=== PATIENT | male | born 1975 | race Caucasian/White ===

== ENCOUNTER 2017-11-19 16:05 | Emergency (ER) | payer BC, OTHER ==
[~2017-11-19] VITALS: Ht 175.3 cm; Wt 79.1 kg
[2017-11-19 16:07] VITALS: Ht 175.3 cm; Wt 79.1 kg
[2017-11-19] MEDS ORDERED: MoRPHine SULFATE 10 MG/ML CARP/VIAL IV STA (16:14)
[2017-11-19] MEDS ORDERED: ONDANSETRON INJ 2 MG/ML 2 ML VIAL IV PRN (16:15)
--- NOTE | 2017-11-19 16:43 | DIAGNOSTIC IMAGING REPORT ---
L FOREARM 2 VIEWS ROUTINE CLINICAL HISTORY: Fall/forearm injury trauma. Pain. COMPARISON: None. DISCUSSION: Transverse comminuted fracture midshaft radius. Left elbow dislocation. Moderate soft tissue edema IMPRESSION: 1. Comminuted fracture with moderate displacement mid radial shaft. 2. Left elbow dislocation. The above report was generated using voice recognition software. It may contain grammatical, syntax or spelling errors. Electronically signed by: Yvon Ruffin M.D. 11/19/2017 4:42 PM Dictated Date/Time: 11/19/2017 4:41 PM
--- NOTE | 2017-11-19 16:44 | DIAGNOSTIC IMAGING REPORT ---
L ELBOW MIN 3 VIEWS ROUTINE CLINICAL HISTORY: Left elbow injury trauma COMPARISON: None. DISCUSSION: Comminuted somewhat displaced fracture mid shaft radius. Anterior dislocation of the humerus in relation to the radius and ulna. Generalized soft tissue edema. IMPRESSION: 1. Elbow dislocation. 2. Comminuted distracted fracture midshaft radius. The above report was generated using voice recognition software. It may contain grammatical, syntax or spelling errors. Electronically signed by: Yvon Ruffin M.D. 11/19/2017 4:43 PM Dictated Date/Time: 11/19/2017 4:42 PM
[2017-11-19] MEDS ORDERED: PROPOFOL IV EMULSION 10 MG/ML 20 ML VIAL IV STA (17:01)
[2017-11-19 17:16] VITALS: BP 141/88; PULSE 93; O2SAT 100
[2017-11-19 17:19] VITALS: BP 130/88; PULSE 89; TEMP 36.9; O2SAT 98
--- NOTE | 2017-11-19 17:28 | EMERGENCY ROOM VISIT NOTE ---
Pre-Mod Sedation Assessment General Date of Moderate Sedation: Nov 19, 2017. Vital Signs: Vital Signs Past 12 Hours Date Time Temp Pulse Resp B/P (MAP) Pulse Ox O2 Delivery O2 Flow Rate FiO2 11/19/17 17:10 82 11/19/17 16:07 36.7 82 20 164/97 99 Room Air Review Cardiovascular: regular rate, rhythm, no edema, no gallop, no JVD, no murmur, normal peripheral pulses Abdomen: normal bowel sounds, non tender, soft, no organomegaly, no pulsatile mass Lungs: chest non-tender, lungs clear, normal breath sounds, no respiratory distress, no accessory muscle use Airway Class: I Pre-Sedation Airway Assessment Oral Cavity: WNL Able to Visualize Vocal Cords: No Short Thick Neck: No Hx of Sleep Apnea: No Smoking Status: Former Smoker Mallampati Classification: Class II ASA Classification: Class I Procedure Planning Contraindications-for Mod Sed: None Yes Notes The planned sedation has been discussed with the patient and consent obtained. I have identified the patient, determined the appropriateness of sedation and have assessed the patient immediately prior to the procedure. All medicine(s) and interventions are by my order.
[2017-11-19] MEDS ORDERED: HYDR-5688 PO (17:37)
--- NOTE | 2017-11-19 17:43 | Post Sedation Assessment ---
Post Sedation Assessment General Date of Sedation Nov 19, 2017. Vital Signs: Vital Signs Past 12 Hours Date Time Temp Pulse Resp B/P (MAP) Pulse Ox O2 Delivery O2 Flow Rate FiO2 11/19/17 17:10 82 11/19/17 16:07 36.7 82 20 164/97 99 Room Air Post Procedure Recovery Score Activity: (2) Moves 4 extremities * Respiration: (2) Deep breath/cough Circulation: (2) +/-20% PreAnes Value Consciousness: (2) Fully Awake Oxygen Saturation: (2) > 92% On Room Air Post Anesthesia Score: 10 Post Sedation Plan On clinical assessment, the patient appears to have tolerated the sedation without complications. Patient has recovered as anticipated.
[2017-11-19] MEDS: NORCO 5/325MG HOME PACK PO ONE ×2 (17:45→18:57)
--- NOTE | 2017-11-19 18:01 | DIAGNOSTIC IMAGING REPORT ---
L ELBOW 2 VIEWS CLINICAL HISTORY: Post reduction dislocation COMPARISON: Same date DISCUSSION: Improved alignment post closed reduction. Dislocation appears to have been primarily reduced. Comminuted fracture of the radius is again noted. Several small avulsions about the elbow are present. IMPRESSION: Improved alignment post closed reduction. No current evidence for dislocation. Remaining findings as noted. The above report was generated using voice recognition software. It may contain grammatical, syntax or spelling errors. Electronically signed by: Yvon Ruffin M.D. 11/19/2017 6:00 PM Dictated Date/Time: 11/19/2017 5:59 PM
--- NOTE | 2017-11-19 18:41 | EMERGENCY ROOM VISIT NOTE ---
History First contact with patient: 16:11 Chief Complaint: ARM PAIN Stated Complaint: BROKEN LEFT ELBOW History of Present Illness The patient is a 41 year old male who presents to the Emergency Room with complaints of left elbow injury. The patient states that he fell off a ladder and landed directly onto his left elbow which was in a flexed position. The patient denies any other injuries or any loss of consciousness. The patient denies any numbness and tingling in his fingers. Although he does admit that it hurts to move his fingers due to the pain in his forearm and elbow. The patient is right-hand dominant. The patient denies any prior injuries to his left arm. The patient last ate at 9 AM today and had a few sips of water since that time. The patient has no known drug allergies. He has no chronic medical conditions. Review of Systems 10 system review was performed and was negative unless stated otherwise history of present illness. Past Medical/Surgical History Medical Problems: (1) No Known Active Medical Problems Social History Smoking Status: Former Smoker Alcohol Use: occasionally Drug Use: none Marital Status: Housing Status: lives with family Occupation Status: employed Current/Historical Medications Scheduled PRN Hydrocodone/Acetaminophen 5MG/325MG (Watson 5MG/325MG), 1-2 TABLET PO Q6 PRN for Pain Physical Exam Vital Signs Date Time Temp Pulse Resp B/P (MAP) Pulse Ox O2 Delivery O2 Flow Rate FiO2 11/19/17 18:12 86 18 135/79 99 Room Air 11/19/17 17:42 88 18 127/86 98 Room Air 11/19/17 17:19 36.9 89 20 130/88 98 Room Air 11/19/17 17:18 36.9 87 18 120/89 100 Nasal Cannula 2.0 11/19/17 17:16 93 18 141/88 100 Nasal Cannula 2.0 11/19/17 17:15 36.9 93 18 141/88 100 Nasal Cannula 2.0 11/19/17 17:10 82 11/19/17 16:07 36.7 82 20 164/97 99 Room Air Physical Exam GENERAL: 41-year-old male appears uncomfortable secondary to arm pain. MENTAL Status: Alert and oriented 3. LUNGS: Clear auscultation without wheezes rales or rhonchi. CARDIAC: Regular rate and rhythm without murmur. Pulses is full and equal throughout. LEFT ARM: Shoulder is nontender to palpation. Humerus is nontender to palpation. There is bony deformity noted of the mid forearm and of the elbow. Did not assess range of motion. Radial pulses 2+. Capillary refill is normal. Patient is able to move his fingers without difficulty although it is painful to the elbow with movement. Medical Decision & Procedures ER Provider Diagnostic Interpretation: L ELBOW 2 VIEWS CLINICAL HISTORY: Post reduction dislocation COMPARISON: Same date DISCUSSION: Improved alignment post closed reduction. Dislocation appears to have been primarily reduced. Comminuted fracture of the radius is again noted. Several small avulsions about the elbow are present. IMPRESSION: Improved alignment post closed reduction. No current evidence for dislocation. Remaining findings as noted. The above report was generated using voice recognition software. It may contain grammatical, syntax or spelling errors. Electronically signed by: Yvon Ruffin M.D. L FOREARM 2 VIEWS ROUTINE CLINICAL HISTORY: Fall/forearm injury trauma. Pain. COMPARISON: None. DISCUSSION: Transverse comminuted fracture midshaft radius. Left elbow dislocation. Moderate soft tissue edema IMPRESSION: 1. Comminuted fracture with moderate displacement mid radial shaft. 2. Left elbow dislocation. The above report was generated using voice recognition software. It may contain grammatical, syntax or spelling errors. Electronically signed by: Yvon Ruffin M.D. 11/19/2017 4:42 PM L ELBOW MIN 3 VIEWS ROUTINE CLINICAL HISTORY: Left elbow injury trauma COMPARISON: None. DISCUSSION: Comminuted somewhat displaced fracture mid shaft radius. Anterior dislocation of the humerus in relation to the radius and ulna. Generalized soft tissue edema. IMPRESSION: 1. Elbow dislocation. 2. Comminuted distracted fracture midshaft radius. The above report was generated using voice recognition software. It may contain grammatical, syntax or spelling errors. Electronically signed by: Yvon Ruffin M.D. 11/19/2017 4:43 PM Medications Administered Medications (Trade) Dose Ordered Sig/Yoly Route Start Time Stop Time Status Last Admin Dose Admin Morphine Sulfate (MoRPHine SULFATE INJ) 6 mg NOW STAT IV 11/19/17 16:14 11/19/17 16:16 DC 11/19/17 16:41 6 MG Ondansetron HCl (Zofran Inj) 4 mg Q4H PRN IV 11/19/17 16:15 12/19/17 16:14 11/19/17 16:40 4 MG ED Course The patient was evaluated. IV access was obtained. The patient was given morphine 6 mg IV and Zofran 4 mg IV push. X-rays of the left elbow and forearm were ordered interpreted by the radiologist as above with dislocation of the elbow as well as a comminuted fracture of the radius. The patient's case was discussed with Dr. gamez who agrees with treatment plan. Dr. Bee was consulted and will come in for reduction of the elbow. The patient will be moved to A1 for conscious sedation. Please see Dr. Hill's note for conscious sedation and Dr. Bee's note for reduction. After reduction was accomplished the patient was placed in a long-arm splint and sling. Post- splinting the patient was neurovascularly intact. Postreduction x-rays were ordered interpreted by the radiologist as above with reduction of the dislocation. The patient was given a Watson home pack to take as directed this evening for pain. Before discharge the patient was reevaluated once again and he was still neurovascularly intact. He was able to move his fingers without difficulty. He will contact Dr. Bee's office tomorrow for follow-up appointment and scheduling of surgery for his left radial fracture. Medical Decision Differential diagnosis includes dislocation, fracture, contusion [place] Drug Monitoring Program Search Results: patient reviewed within database Medication Reconcilliation Current Medication List: was personally reviewed by me Blood Pressure Screening Patient's blood pressure: Elevated blood pressure Blood pressure disposition: Elevated BP felt to be situational Impression Primary Impression: Dislocation of elbow, left, closed Additional Impression: Fracture, radius, shaft Departure Information Dispostion Home / Self-Care Condition GOOD Prescriptions Hydrocodone/Acetaminophen 5MG/325MG (Watson 5MG/325MG) Tab 1-2 TABLET PO Q6 Y for Pain, #14 TAB For Initial Treatment Prov: Miguelina Ruffin PA-C 11/19/17 Referrals Giovani Potter MD (PCP) Deven Bee D.O. Forms HOME CARE DOCUMENTATION FORM, IMPORTANT VISIT INFORMATION Patient Instructions ED Splint Care Oralia Art Tengion Additional Instructions Do not take ibuprofen, Motrin, Aleve. Take Watson as needed for pain. Do not drive while taking the Watson. Keep splint clean and dry. Keep arm in splint and sling until evaluated by Dr. Bee. Ice intermittently over the next [address] Bee's office tomorrow for follow-up appointment. Problem Qualifiers Primary Impression: Dislocation of elbow, left, closed Encounter type: initial encounter Qualified Codes: S53.105A - Unspecified dislocation of left ulnohumeral joint, initial encounter Additional Impression: Fracture, radius, shaft Encounter type: initial encounter Fracture type: closed Fracture morphology : comminuted Fracture alignment: displaced Laterality: left Qualified Codes: S52.352A - Displaced comminuted fracture of shaft of radius, left arm, initial encounter for closed fracture
[2017-11-19 19:02] VITALS: BP 128/86; PULSE 87; O2SAT 99
--- NOTE | 2017-11-19 20:01 | ORTHOPEDIC CONSULTATION ---
DATE OF CONSULTATION: 11/19/2017 HISTORY OF PRESENT ILLNESS: This is a 41-year-old right hand dominant gentleman who was doing some housework today. He had been standing on a ladder. He lost his footing on the ladder and fell directly on his left elbow. He had immediate pain and deformity. Difficulty moving the arm and presented to [facility]. He had no loss of consciousness. No numbness or tingling in his fingers. He had breakfast at 9:00 a.m. PAST MEDICAL HISTORY: Denies. PAST SURGICAL HISTORY: Denies. ALLERGIES: No known drug allergies. MEDICATIONS: Hydrocodone p.r.n. pain. SOCIAL HISTORY: Former smoker. Used snuff occasionally. Uses alcohol occasionally, i.e. 2-3 times during the week and then every weekend with 1-3 beer or hard cider per day. Denies drug use. He is and lives with his family. He is employed. PHYSICAL EXAMINATION: GENERAL: This is a right hand dominant 41-year-old gentleman who is lying supine on the hospital room bed. He is alert and oriented x3. Speech clear and fluent. Affect is appropriate. EXTREMITIES: Examination of the left upper extremity demonstrates skin with local contusion over the left elbow. There is obvious deformity with posterior dislocation of the left elbow. He also has slight deformity at the radius midshaft. He has tenderness to palpation at the elbow and the mid shaft radius. Radial, ulnar, and median nerve sensory and motor functions intact. Radial pulses 2/4. Fingers are warm. IMAGING: Radiographs demonstrate a fracture dislocation of the left elbow with mid shaft radius fracture with a slight butterfly comminution. There is no obvious fracture of the ulnar trochlear joint, obvious posterior dislocation. IMPRESSION: 1. Left elbow fracture dislocation. 2. Fracture, midshaft radius. RECOMMENDATIONS: Conscious sedation, closed reduction, and application of a posterior splint with sugar tong for the forearm. Patient will maintain ice, elevation, and follow up this next week for orthopedic followup because he will require plate fixation of the radial fracture. PROCEDURE: After obtaining verbal and written consents from the patient, the ER physician also had consented for conscious sedation. Monitors were attached to the patient appropriately, and patient was administered propofol for conscious sedation under monitored care. He achieved sedated state, and gentle atraumatic closed reduction maneuver was then performed using gentle traction and 2-finger technique at the ulnar trochlear joint for easy reduction. Next, range of motion was then performed. Patient had near full range of motion with some local edema within the elbow joint for supination, pronation, flexion, and extension. Next, a well-padded posterior splint was applied as well as a sugar tong for the forearm made of Orthoglass. This was overwrapped with an Darrion wrap. Fingers were pink and warm. Radial pulses were noted to be 2/4. The elbow was put in neutral rotation. Final post reduction radiographs were obtained noting concentric reduction of the elbow joint and improved alignment of the radius fracture. Patient was then discharged home with home care instructions, cast instructions, and followup instructions to see Dr. Bee this next week. Call the [facility] for Dr. Bee.
== END 2017-11-19 19:03 | disposition home or self-care (01) ==
LOC: C.EDB 16:06 → C.EDD 19:03
DX: S53.105A Unspecified dislocation of left ulnohumeral joint, initial encounter (principal); S52.352A Displaced comminuted fracture of shaft of radius, left arm, initial encounter for closed fracture; W11.XXXA Fall on and from ladder, initial encounter; Z87.891 Personal history of nicotine dependence